=== PATIENT | male | born 1955 | race Hispanic/Latino ===

== ENCOUNTER 2017-12-18 09:19 | Emergency (ER) | payer SELFPAY ==
[~2017-12-18] VITALS: Ht 180.3 cm; Wt 80.0 kg
[2017-12-18] MEDS ORDERED: CYCLOBENZAPRINE5 MG PO (10:09)
[2017-12-18] MEDS ORDERED: MOTRIN400 MG PO (10:09)
[2017-12-18 11:00] VITALS: BP 155/86
== END 2017-12-18 10:55 | disposition home or self-care (01) | DRG 563 ==
LOC: ED 09:19
DX: S29.012A Strain of muscle and tendon of back wall of thorax, initial encounter (principal); M54.5 Low back pain; M54.6 Pain in thoracic spine; S39.012A Strain of muscle, fascia and tendon of lower back, initial encounter

== ENCOUNTER 2020-10-16 12:42 | Emergency (ER) | payer MEDICARE ==
[~2020-10-16 12:42] MED LIST: CYCLOBENZAPRINE5 MG PO; MOTRIN400 MG PO
[2020-10-16 13:40] VITALS: BP 154/74
== END 2020-10-16 13:40 | disposition home or self-care (01) ==
LOC: ED 12:42
DX: B35.6 Tinea cruris (principal); F17.210 Nicotine dependence, cigarettes, uncomplicated

== ENCOUNTER 2022-02-15 06:40 | Day surgery (SDC) | payer MEDICARE ==
[~2022-02-15] VITALS: Ht 167.6 cm; Wt 73.5 kg
[~2022-02-15 06:40] MED LIST changes: +BENADRYL25 M1 PO; +LISINOPRIL10 MG PO; +SAW PALMETTO1 CAP; +TAMSULOSIN HCL0.4 MG PO
[2022-02-15 09:30] VITALS: BP 145/79
== END 2022-02-15 09:10 | disposition home or self-care (01) ==
LOC: ORM 06:40
PROVIDERS: ATTEND Urology
PROC: 0VB03ZX Excision of Prostate, Percutaneous Approach, Diagnostic (ICD-10-PCS; principal; 2022-02-15)
PROC: BV49ZZZ Ultrasonography of Prostate and Seminal Vesicles (ICD-10-PCS; 2022-02-15)
DX: C61 Malignant neoplasm of prostate (principal); N40.3 Nodular prostate with lower urinary tract symptoms; R35.1 Nocturia; N39.43 Post-void dribbling; R39.12 Poor urinary stream; R35.0 Frequency of micturition; E11.9 Type 2 diabetes mellitus without complications; I10 Essential (primary) hypertension; E78.5 Hyperlipidemia, unspecified; Z79.84 Long term (current) use of oral hypoglycemic drugs; F17.210 Nicotine dependence, cigarettes, uncomplicated
CPT/HCPCS: J1956

== ENCOUNTER 2023-02-28 08:34 | Inpatient (IN) | payer MEDICARE ==
[2023-02-28] VITALS (56 sets, daily range): BP systolic 88–148; BP diastolic 38–90
[~2023-02-28] VITALS: Ht 167.6 cm; Wt 62.0 kg
[2023-02-28 09:26] LABS: BASO% 0.5 % (0-3); EOS% 0.9 % (0-8); HEMOGLOBIN 8.8 g/dl (14.0-18.0); IMMATURE GRANULOCYTES 0.2 % (0.0-5.0); MEAN CELL VOLUME 89.2 fL CALC (80.0-100.0); MEAN CORPUSCULAR HGB 27.1 pG CALC (26.0-32.0); MEAN CORPUSCULAR HGB CONC 30.3 g/dL CAL (32.0-36.0); NEUT# 7.02 thou/uL (1.82-7.42); NEUT% 79.4 % (42-76); RED BLOOD COUNT 3.25 mill/uL (4.70-6.10); RED CELL DISTRI WIDTH 14.4 % (11.5-15.5)
[2023-02-28 09:40] LABS: ANION GAP 16 (6-22 (CALC)); BILIRUBIN, TOTAL 0.6 mg/dL (0.2-1.3); BUN 13 mg/dL (8-23); BUN/CREATININE RATIO 24 (12-20 (CALC)); CARBON DIOXIDE 24 mmol/l (22-30); CHLORIDE 100 mmol/l (95-108); CREATININE 0.6 mg/dL (0.7-1.3); GFR FOR AFR.AMER. > 60 ML/MIN (>=60 (CALC)); GFR OTHER RACES > 60 ML/MIN (>=60 (CALC)); POTASSIUM 4.5 mmol/l (3.5-5.1); SODIUM 136 mmol/l (137-146)
[2023-02-28 09:43] LABS: ALKALINE PHOSPHATASE 195 u/l (38-126); SGOT/AST 25 u/l (19-48); TOTAL PROTEIN 9.4 g/dL (6.3-8.2)
[2023-02-28 14:25] LABS: URINE BILIRUBIN - DIPSTICK Negative (NEGATIVE); URINE BLOOD DIPSTICK Negative (NEGATIVE); URINE GLUCOSE - DIPSTICK >=1000 mg/dL (NEGATIVE); URINE KETONE Negative (NEGATIVE); URINE LEUK ESTERASE Negative (NEGATIVE); URINE NITRITE - DIPSTICK Negative (Negative); URINE PROTEIN - DIPSTICK Negative (NEG-TRACE); URINE SPECIFIC GRAVITY <=1.005; URINE UROBILINOGEN - DIPSTICK 0.2 E.U./dL (0.2)
[2023-02-28 14:26] LABS: URINE COLOR Yellow
[2023-02-28] MEDS ORDERED: JARDIANCE25 MG (16:10)
[2023-02-28] MEDS ORDERED: TOPROL XL50 MG PO (16:10)
[2023-02-28] MEDS ORDERED: XARELTO20 MG PO (16:11)
[2023-02-28] MEDS ORDERED: SIMVASTATIN20 M1 (16:11)
[2023-02-28] MEDS ORDERED: METFORMIN500 M2 PO (16:12)
[2023-02-28] MEDS ORDERED: CARDIZEM60 MG PO (16:13)
[2023-03-01] VITALS (56 sets, daily range): BP systolic 96–134; BP diastolic 46–89
[2023-03-01 10:28] LABS: HEMATOCRIT 27.9 % (39.0-50.0); HEMOGLOBIN 8.2 g/dl (14.0-18.0); MEAN CELL VOLUME 90.6 fL CALC (80.0-100.0); MEAN CORPUSCULAR HGB 26.6 pG CALC (26.0-32.0); MEAN CORPUSCULAR HGB CONC 29.4 g/dL CAL (32.0-36.0); RED BLOOD COUNT 3.08 mill/uL (4.70-6.10); RED CELL DISTRI WIDTH 14.4 % (11.5-15.5)
[2023-03-01 10:53] LABS: ALBUMIN 3.3 g/dL (3.2-5.0); ALKALINE PHOSPHATASE 174 u/l (38-126); ANION GAP 15 (6-22 (CALC)); BILIRUBIN, TOTAL 0.7 mg/dL (0.2-1.3); BUN 13 mg/dL (8-23); BUN/CREATININE RATIO 27 (12-20 (CALC)); CARBON DIOXIDE 22 mmol/l (22-30); CHLORIDE 102 mmol/l (95-108); CREATININE 0.5 mg/dL (0.7-1.3); GFR FOR AFR.AMER. > 60 ML/MIN (>=60 (CALC)); GFR OTHER RACES > 60 ML/MIN (>=60 (CALC)); POTASSIUM 4.2 mmol/l (3.5-5.1); SGOT/AST 19 u/l (19-48); SODIUM 134 mmol/l (137-146); TOTAL PROTEIN 7.6 g/dL (6.3-8.2)
== END 2023-03-01 17:51 | disposition home or self-care (01) | DRG 310 ==
LOC: ED 08:34 → ED-I 11:47 → ED 15:15 → ICU 15:16
PROVIDERS: Family Medicine; Internal Medicine; ADMIT Student in an Organized Health Care Education/Training Program; ATTEND Student in an Organized Health Care Education/Training Program
DX: I48.92 Unspecified atrial flutter (principal); D64.9 Anemia, unspecified; I48.91 Unspecified atrial fibrillation; I10 Essential (primary) hypertension; E11.9 Type 2 diabetes mellitus without complications; M62.89 Other specified disorders of muscle; N40.0 Benign prostatic hyperplasia without lower urinary tract symptoms; F17.200 Nicotine dependence, unspecified, uncomplicated; Z79.01 Long term (current) use of anticoagulants; Z20.822 Contact with and (suspected) exposure to COVID-19
CPT/HCPCS: J1650; Q9967